=== PATIENT | female | born 1960 | race Caucasian/White ===

== ENCOUNTER → 2018-07-01 | Day surgery (SDC) | payer BC ==
[~2018-07-01] MED LIST: ACETAMINOPHEN 1,000 MG/100 ML BTL IV ONE; BUPIVACAINE 0.25% W/EPI MPF 30ML VIAL IVP ONE; DEXAMETHASONE 4 MG/ML 1ML VIAL IVP ONE; FENTANYL PF 100MCG/2ML VIAL IV ONE; LIDOCAINE 2% MDV (20MG/ML) 20ML VIAL IV ONE; MIDAZOLAM HCL 2MG/2ML VIAL IV ONE; ONDANSETRON HCL IV 4 MG/2 ML VIAL IVP ONE; PROPOFOL 10 MG/ML VIAL IV ONE; SEVOFLURANE 250 ML INH ONE
--- NOTE | 2018-07-02 08:30 | Operative Note ---
DATE OF SURGERY: 07/01/2018 Surgeon: Zak Baum DO PREOPERATIVE DIAGNOSES: 1. Torn lateral meniscus of the left knee. 2. Chondromalacia of the left knee. POSTOPERATIVE DIAGNOSES: 1. Torn lateral meniscus, left knee. 2. Synovitis of the left knee. 3. Chondromalacia of lateral tibial plateau, lateral femoral condyle, patella, and trochlea, left knee. OPERATION: 1. Arthroscopic partial lateral meniscectomy, left knee. 2. Arthroscopic partial synovectomy, left knee (2 compartments). 3. Arthroscopic chondroplasty of lateral femoral condyle, lateral tibial plateau, trochlea, and patella, left knee. DESCRIPTION OF PROCEDURE: This 58-year-old female was taken to the operating room and placed in the supine position on the operating room table where general anesthesia was induced. The left lower extremity was elevated. It was exsanguinated and the tourniquet inflated to 300 mmHg. Arthroscopic knee lou applied. Left knee prepped with Hibiclens and draped in the usual sterile fashion. An inferolateral portal was established for the 4 mm arthroscope. Initial evaluation of the joint demonstrated normal appearance of the suprapatellar pouch but mild grade 2 chondromalacia of the patella was present and loose flaps of articular cartilage were present on the lateral facet. The trochlea demonstrated grade 2-3 changes throughout. An inferomedial portal was established, and chondroplasty was performed with partial synovectomy there too to smooth and contour the articular cartilage with no loose flaps. It was re-probed and confirmed to be stable. The medial compartment was entered and probing of the medial compartment did not reveal any tears of the medial meniscus, and the medial femoral condyle appeared normal. The intracondylar notch was examined and found to be normal. 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 This lesion was approximately 1.5 to 2 cm in greatest dimension being approximately that long and 1 to 1.5 cm wide. In addition, a lesion of the lateral femoral condyle was also present and in the center of the weightbearing surface. This was about 1.5 cm wide as well. Again, severe grade 3 change. Chondroplasty was performed to stabilize the articular cartilage there. The patient also demonstrated a complex tear of the lateral meniscus. The tear started at approximately the 2-o'clock to 3-o'clock position and extended around to the anterior horn. I did not see any portion of the meniscus flipped up behind the femoral condyle, and we removed the unstable fragments of the lateral meniscus and re-probed and confirmed it to be stable. This was an extensive tear. After probing, we felt that the cartilage was stable and it was not further disturbed. The wound irrigated and suctioned. The instruments were removed. The portals infiltrated with 0.25% Marcaine with epinephrine. Sterile dressings applied. Tourniquet and knee lou released and the patient taken to the recovery room in satisfactory condition. GROSS PATHOLOGY: This patient demonstrated advanced grade 3 changes of the lateral femoral condyle and lateral tibial plateau as described above. Synovitis on the lateral compartment and patellofemoral articulation was present. Medial compartment appeared normal. Advanced degenerative changes of the patellofemoral joint present as described above. CC: Doug Abraham MD [email or web address]
== END | disposition home or self-care (01) ==
LOC: SUR 09:19
PROVIDERS: ATTEND Orthopaedic Surgery
DX: S83.272A Complex tear of lateral meniscus, current injury, left knee, initial encounter (principal); M65.88 Other synovitis and tenosynovitis, other site; M22.42 Chondromalacia patellae, left knee; M94.262 Chondromalacia, left knee
CPT/HCPCS: 29881; 29875; 01400; J2405; J3010